=== PATIENT | female | born 2000 | race Caucasian/White ===

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

== ENCOUNTER 2023-01-07 00:45 | Emergency (ER) | payer OTHER | END 2023-01-07 01:06 | disposition home or self-care (01) | LOC: ERS 00:45 | DX: R11.2 Nausea with vomiting, unspecified (principal); F17.210 Nicotine dependence, cigarettes, uncomplicated; I10 Essential (primary) hypertension | CPT/HCPCS: 99283 ==

== ENCOUNTER 2023-01-21 21:13 | Emergency (ER) | payer OTHER, SELFPAY | END 2023-01-21 21:30 | disposition home or self-care (01) | LOC: ERS 21:13 | DX: R05.9 Cough, unspecified (principal); I10 Essential (primary) hypertension; F17.210 Nicotine dependence, cigarettes, uncomplicated | CPT/HCPCS: 99283 ==